=== PATIENT | female | born 1960 | race Caucasian/White ===

== ENCOUNTER 2023-10-30 07:57 | Outpatient (CLI) | payer MEDICARE, BC, SELFPAY | END 2023-10-30 07:58 | disposition home or self-care (01) | LOC: INJ CL 08:01 | PROVIDERS: PCP Internal Medicine; Visit Provider Family Medicine | DX: M54.16 Radiculopathy, lumbar region (principal); M51.26 Other intervertebral disc displacement, lumbar region | CPT/HCPCS: 64483; J1100; Q9966 ==

== ENCOUNTER 2025-07-12 20:23 | Outpatient (CLI) | payer MEDICARE, BC, SELFPAY | END 2025-07-12 20:24 | disposition home or self-care (01) | PROVIDERS: PCP Internal Medicine; Visit Provider Internal Medicine | DX: G47.33 Obstructive sleep apnea (adult) (pediatric) (principal) | CPT/HCPCS: 95811 ==